=== PATIENT | female | born 1990 | race Caucasian/White ===

== ENCOUNTER 2023-07-15 18:10 | Emergency (ER) | payer OTHER, SELFPAY ==
[2023-07-15 18:17] VITALS: BP 139/79
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
[2023-07-15] MEDS: XANAX 0.5 MG PO (18:46)
--- NOTE | 2023-07-15 19:00 | EDRN ---
Report recieved, patient currently waiting on telepsych to speak with her, once we know if 302 is upheld will need to change patient into blue scrubs, patient was not cooperative earlier with this attempt.
--- NOTE | 2023-07-15 22:00 | EDRN ---
302 was upheld patient aware, gave patient option to change herself however refusing, waiting on more staff for safety of patient and staff to get patient into blue scrubs.
[2023-07-15] MEDS: ATIVAN 2 MG IM (22:52)
[2023-07-15] MEDS: HALDOL 5 MG IM (22:52)
[2023-07-15 23:00] LABS: % Basophils 0.4 % (0-2); % Eosinophils 0.7 % (0-6); % Immature Granulocytes 0.5 % (0-0.5); % Lymphocytes 32.8 % (20.5-51.1); % Monocytes 6.6 % (1.7-9.3); Absolute Basophils 0.1 10^3/uL (0-0.2); Absolute Eosinophils 0.1 10^3/uL (0-0.7); Absolute Immature Granulocytes 0.1 10^3/uL (0-0.05); Absolute Lymphocytes 6.4 10^3/uL (1.2-3.4); Absolute Monocytes 1.3 10^3/uL (0.1-0.6); Absolute Neutrophils 11.5 10^3/uL (1.4-6.5); Hematocrit 43.3 % (37.0-47.0); Hemoglobin 15.1 g/dL (12.0-16.0); Mean Corp Hgb Conc. 34.9 g/dL (33.0-37.0); Mean Corpuscular Hgb 28.7 pg (27.0-31.0); Mean Corpuscular Volume 82.2 fL (81.0-99.0); Mean Platelet Volume 10.2 fL (7.4-10.4); Nucleated Red Blood Cells % 0 %; Platelet Count 369 10^3/uL (130-400); Red Blood Cell Count 5.27 10^6/uL (4.20-5.40); Red Cell Dist. Width 12.2 % (11.5-14.5); White Blood Cell Count 19.5 10^3/uL (4.8-10.8)
--- NOTE | 2023-07-15 23:00 | EDRN ---
After several attempts to have patient change herself in to the paper blue scrubs per policy for 302 patients, patient is refusing, patient is cursing and screaming at staff, security as well as several staff members in at bedside with patient as
well as Dr. Palmer at bedside explaining that she needs to change and can change herself or we can help. When asking patient to get back into the stretcher, patient starts to try and punch staff and swing at staff, patient safely transferred to
stretcher with several staff members and changed into blue scrubs, patient at this time attempts to bite staff as well as hit staff. Dr. Palmer ordered to give IM Haldol and Ativan to assist in calming patient down. Patient continues to try to hit
staff along with cursing at staff and becoming unsafe for staff and for herself. Patient needing to be placed in 4 point restraint to maintain safety of patient and staff members.
[2023-07-15 23:13] LABS: HCG, Serum Qualitative Screen Negative
[2023-07-15 23:14] LABS: COVID-19 Antigen Negative (Negative)
[2023-07-15 23:17] LABS: Blood Urea Nitrogen 9 mg/dl (7-17); Calcium 10.3 mg/dl (8.4-10.2); Carbon Dioxide 15 mmol/L (22-30); Chloride 105 mmol/L (98-107); Glucose 136 mg/dl (70-99); Sodium 136 mmol/L (135-145); eGFR > 60.00
[2023-07-15 23:20] LABS: Alcohol None Detected
--- NOTE | 2023-07-16 01:30 | EDRN ---
Patient has been sleeping and calm, removed right ankle restraint and left wrist restraint, will continue to monitor to be able to remove the rest of restraints, security is at bedside.
--- NOTE | 2023-07-16 02:00 | EDRN ---
Patient has been sleeping comfortably, removed 2nd set of restraints, will continue to assess to make sure patient is not needing them, security at bedside.
--- NOTE | 2023-07-16 03:43 | EDRN ---
Patient resting comfortably security on 1:1, no issues at this time will continue to monitor
--- NOTE | 2023-07-16 06:34 | EDRN ---
Patient resting with 1:[address],will continue to monitor
[2023-07-16] MEDS: XANAX 1 MG PO (09:23)
[2023-07-16 09:32] VITALS: BP 114/71
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
--- NOTE | 2023-07-16 13:45 | PHANOTE ---
07/16/2023, med rec tech, pt. asleep at time of interview; attempted to call pt.'s mother and father but went straight to voicemail for both; [facility] records are from 2020; used pharmacy records to obtain a med. list but could not confirm any of pt.'s
meds.
[2023-07-16 17:28] VITALS: BP 99/68
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
[2023-07-17] MEDS: BUSPAR 15 MG PO (12:00)
[2023-07-17] MEDS: PROZAC 20 MG PO (12:00)
[2023-07-17] MEDS: ATIVAN 0.5 MG PO (18:51)
[2023-07-18 04:09] VITALS: BP 109/73
[2023-07-18] MEDS: ATIVAN 0.5 MG PO (04:29)
[2023-07-18 07:00] VITALS: BP 110/81; BMI 27.2
[2023-07-18] MEDS: PROZAC 20 MG PO (09:29)
[2023-07-18] MEDS: BUSPAR 15 MG PO (09:29)
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
[2023-07-18 11:51] VITALS: BP 129/74
== END 2023-07-18 11:52 ==
LOC: EMR 18:10
PROVIDERS: CONSULT PHYSICIAN Psychiatry & Neurology Psychiatry; EMERGENCY PHYSICIAN Emergency Medicine
DX: R45.6 Violent behavior (principal); F31.9 Bipolar disorder, unspecified; F17.200 Nicotine dependence, unspecified, uncomplicated
CPT/HCPCS: 99285; 96372 ×2; 80048; 82077; 84703; 85025; 87811